=== PATIENT | female | born 1995 | race Two or more races ===

== ENCOUNTER 2017-03-26 04:30 | Inpatient (IN) | payer OTHER ==
[2017-03-26] MEDS ORDERED: BUTORPHANOL TARTRATE 1 MG/ML VIAL IVPUSH ONE (05:30)
[2017-03-26] MEDS ORDERED: DEXTROSE 5%-LACTATED RINGERS 1,000 ML IV SCH ×2 (05:30→18:45)
[2017-03-26] MEDS ORDERED: AMPICILLIN 2 GM/100 ML BAG (PRE-DOCKED) IVPB ONE (05:30)
[2017-03-26 05:48] LABS: BASOPHIL 0.4 % (0-2.0); EOSINOPHIL 2.5 % (0-4.5); MCH 24.9 pg (25.7-33.7); MCHC 33.3 g/dl (32.0-36.0); MEAN CELL VOLUME 74.7 fl (80-96); MEAN PLT VOLUME 8.6 fl (7.5-11.1); NEUTROPHILS 71.7 % (42.8-82.8); PLATELET COUNT 241 K/MM3 (134-434); RDW 18.3 % (11.6-15.6); WHITE BLOOD COUNT 10.3 K/mm3 (4.0-10.0)
[2017-03-26 06:00] LABS: INR 1.05 (0.82-1.09); PROTHROMBIN TIME (PATIENT) 11.6 SEC (9.98-11.88)
[2017-03-26 06:01] VITALS: BMI 42.0
[2017-03-26 06:03] LABS: ACTIVATED PTT 32.2 SECONDS (26.9-34.4)
[2017-03-26 06:09] LABS: URINE MARIJUANA THC NEGATIVE ng/ml (CUTOFF=50)
[2017-03-26 06:16] LABS: CALCIUM 9.8 mg/dL (8.5-10.1); COCKROFT - GAULT 244.2645; CREATININE 0.6 mg/dL (0.55-1.02)
[2017-03-26] MEDS: AMPICILLIN (PRE-DOCKED) 1 GM/100 ML BAG IVPB SCH ×4 (10:22→21:38)
[2017-03-26] MEDS ORDERED: FENTANYL/BUPIVACAINE/NS/PF - PCEA - 50 ML DISP.SYRIN EP SCH (12:30)
--- NOTE | 2017-03-26 12:50 | PN ---
Progress Note (short form) - Note Progress Note: cx 3 cm 80 vx -2 mr, fhr cat 1, contraction q 3 min
--- NOTE | 2017-03-26 12:58 | HP ---
Past Medical History - Primary Care Physician PCP:: Marck Kahn - Admission Chief Complaint: 38.4 weeks, rom, labor History of Present Illness: 21 yo f edc by sono 04/05/17 38.4 weeks, c/o rom since 9 pm 03/25/17 , contraction since midnight light mec amniotic fluid, cx 2 cm 80 vx -2 mr, light mec, fhr cat1 History Source: Patient Limitations to Obtaining History: No Limitations - Past Medical History ...: 1 ...Para: 0 ...Term: 0 ...: 0 ...Spon : 0 ...Induced : 0 ...Multiple Gestation: 0 ...LMP: 06/29/16 ... Weeks Gestation by Dates: 38.4 ...EDC by Dates: 04/05/17 ...EDC by Sono: 04/05/17 Endocrine: Yes: Hypothyroidism (on no meds) - Past Surgical History Hx Myomectomy: No Hx Transabdominal Cerclage: No - Smoking History Smoking history: Never smoked Have you smoked in the past 12 months: No Aproximately how many cigarettes per day: 0 - Alcohol/Substance Use Hx Alcohol Use: No History of Substance Use: reports: None - Social History History of Recent Travel: No Home Medications - Allergies Allergies/Adverse Reactions: Allergies Allergy/AdvReac Type Severity Reaction Status Date / Time No Known Drug Allergies Allergy Unknown Verified 03/26/17 07:32 peanuts Allergy Mild anapylaxis Uncoded 03/26/17 07:32 - Home Medications Home Medications: Ambulatory Orders Vit/Iron Fumarate/FA [ Tablet] 1 each PO DAILY 02/12/17 Review of Systems - Review of Systems Constitutional: reports: No Symptoms Eyes: reports: No Symptoms HENT: reports: No Symptoms Neck: reports: No Symptoms Cardiovascular: reports: No Symptoms Respiratory: reports: No Symptoms Gastrointestinal: reports: No Symptoms Genitourinary: reports: No Symptoms Breasts: reports: No Symptoms Reported Musculoskeletal: reports: No Symptoms Integumentary: reports: No Symptoms Neurological: reports: No Symptoms Endocrine: reports: No Symptoms Hematology/Lymphatic: reports: No Symptoms Psychiatric: reports: No Symptoms Physical Exam - Maternity Vital Signs: Vital Signs Temperature 97.9 F 03/26/17 11:00 Pulse Rate 82 03/26/17 11:00 Respiratory Rate 17 03/26/17 11:00 Blood Pressure 124/77 03/26/17 11:00 O2 Sat by Pulse Oximetry (%) Constitutional: Yes: Well Nourished, No Distress, Calm Eyes: Yes: WNL, Conjunctiva Clear, EOM Intact HENT: Yes: WNL, Atraumatic, Normocephalic Neck: Yes: WNL, Supple, Trachea Midline Cardiovascular: Yes: WNL, Regular Rate and Rhythm Breast(s): Yes: WNL - Abdominal Exam/OB Fundal Height: 40 Number of Fetuses: Single Presentation: Vertex Contractions: Yes Regularity: Regular Intensity: Mod/Strong Monitor Mode: External Heart Rate Location: [facility] Category: I Accelerations: Uniform Decelerations: None - Vaginal Exam/OB Vaginal Bleediing: No Speculum Exam: No Dilatation (cm): 2 cm Effacement (%): 75 Amniotic Membrane Status: Ruptured Nitrazine Test: Positive Amniotic Fluid: Yes: Meconium Stained Presentation: Vertex/Position Station: -2 - Physical Exam Musculoskeletal: Yes: WNL Extremities: Yes: WNL Edema: Yes Edema: LLE: Trace, RLE: Trace Deep Tendon Reflex Grade: Normal +2 ...Motor Strength: WNL Psychiatric: Yes: WNL - Labs Lab Results: CBC, BMP 03/26/17 05:30 03/26/17 05:30 Problem List - Problems (1) with 38 completed weeks gestation Code(s): Z3A.38 - 38 WEEKS GESTATION OF (2) membrane rupture Code(s): TJM5097 - (3) Labor established Code(s): SXA4693 - Assessment/Plan admit, heart monitoring, pain management
[2017-03-26] MEDS ORDERED: CITRIC ACID/SODIUM CITRATE 30 ML UNIT-DOSE CUP PO ONE (17:55)
[2017-03-26] MEDS ORDERED: ELECTROLYTE-148 SOLN 500 ML IV ONE ×2 (17:55→18:25)
[2017-03-26] MEDS ORDERED: BENZOCAINE 20% 57 GM BOTTLE TP PRN (18:38)
[2017-03-26] MEDS ORDERED: WITCH HAZEL 50% (TUCKS) 40 PAD/JAR PAD TP PRN (18:38)
[2017-03-26] MEDS ORDERED: BENZOCAINE 28 GM HEMORRHOIDAL OINTMENT PR PRN (18:38)
[2017-03-26] MEDS ORDERED: oxyCODONE HCL 5 MG TABLET PO PRN ×2 (18:38)
[2017-03-26] MEDS ORDERED: METHYLERGONOVINE MALEATE 0.2 MG/1 ML AMP IM PRN (18:38)
[2017-03-26] MEDS ORDERED: diphenhydrAMINE HCL 25 MG CAPSULE (FP) PO PRN (18:38)
[2017-03-26] MEDS ORDERED: IBUPROFEN 800 MG/8 ML IJ IVPB PRN (18:38)
[2017-03-26] MEDS ORDERED: OXYTOCIN 20 UNITS in 0.9% NS 1,000 ML IV SCH (18:45)
[2017-03-26] MEDS ORDERED: IBUPROFEN 600 MG TABLET (FP) PO PRN (19:11)
[2017-03-26] MEDS ORDERED: ONDANSETRON 4 MG/2 ML VIAL IVPB PRN (19:11)
[2017-03-26 19:36] LABS: ARTERIAL BLD GAS O2 SATURATION 13.7 % (90-98.9); ARTERIAL BLOOD GAS BASE EXCESS -0.9 meq/l (-2-2); ARTERIAL BLOOD GAS HCO3 27.4 meq/L (22-26); ARTERIAL BLOOD GAS PO2 13.7 mmHg (80-100); ARTERIAL BLOOD GAS pH 7.26 (7.35-7.45)
[2017-03-26 19:43] LABS: VENOUS PH 7.4 (7.32-7.42)
[2017-03-26 19:44] LABS: VENOUS BLOOD GAS HCO3 24.9 meq/L (19-25)
[2017-03-26 19:45] LABS: LPM/O2% 21%; PT. ON O2? NO; TYPE OF O2 ROOM AIR
[2017-03-27] MEDS: CEFAZOLIN (PRE-DOCKED) 50 ML IVPB SCH ×2 (01:00→09:35)
[2017-03-27 08:19] LABS: BASOPHIL 0.6 % (0-2.0); EOSINOPHIL 1.1 % (0-4.5); MCH 25.5 pg (25.7-33.7); MCHC 33.5 g/dl (32.0-36.0); MEAN CELL VOLUME 76.1 fl (80-96); MEAN PLT VOLUME 8.5 fl (7.5-11.1); PLATELET COUNT 194 K/MM3 (134-434); RDW 18.4 % (11.6-15.6); WHITE BLOOD COUNT 12.5 K/mm3 (4.0-10.0)
--- NOTE | 2017-03-27 09:19 | PN ---
Progress Note (short form) - Note Progress Note: pod 1 doing well, has mild low abdominal cramps CBC, BMP 03/27/17 07:00 03/26/17 05:30 abdomen soft, no distension, no cva incision dry no excess vaginal bleeding no calf tenderness plan ambulate, advance diet Problem List - Problems (1) with 38 completed weeks gestation Code(s): Z3A.38 - 38 WEEKS GESTATION OF (2) membrane rupture Code(s): IQV5659 - (3) Labor established Code(s): KUP7841 -
[2017-03-27] MEDS: PRENATAL VITAMINS W/ FOLIC ACID TABLET (FP) PO SCH (09:37)
--- NOTE | 2017-03-27 11:10 | PN ---
Progress Note (short form) - Note Progress Note: Anesthesia post op note. S/P in spinal, POD#1. Pat seen and examined, VSS. No apparentpost anesthesia complications. Signed off.
[2017-03-27] MEDS: ACETAMINOPHEN 325 MG TABLET (FP) PO PRN ×2 (13:54→22:31)
[2017-03-27] MEDS: IBUPROFEN 600 MG TABLET (FP) PO PRN ×2 (13:54→22:31)
[2017-03-27] MEDS: SIMETHICONE 80 MG TAB.CHEW (FP) PO PRN ×2 (13:54→22:31)
[2017-03-27] MEDS ORDERED: BISACODYL 10 MG SUPP.RECT RC PRN (18:38)
--- NOTE | 2017-03-27 23:42 | OP ---
DATE OF OPERATION: 03/26/2017 PREOPERATIVE DIAGNOSIS: term. Ruptured membrane. Meconium amniotic fluid. Nonreassuring heart rate. POSTOPERATIVE DIAGNOSIS: term. Ruptured membrane. Meconium amniotic fluid. Nonreassuring heart rate. PROCEDURE: Primary low segment transverse section. SURGEON: Brenda Logan M.D. STATE ATTORNEY: Nydia Yarbrough M.D. ANESTHESIA: Epidural. ANESTHESIOLOGIST: Sabino Scott M.D. ESTIMATED BLOOD LOSS: 700 mL. OPERATION: Patient was taken to operating room with adequate epidural anesthesia. Abdomen and perineum were prepped and draped. Pfannenstiel abdominal skin incision was made. Abdominal wall was cut layer by layer until the peritoneum was exposed and incised. Upon entering the abdominal cavity, the lower uterine segment was identified, and uterovesical fold of the peritoneum was established. The bladder was pushed down. Then with the lower blade of the [place] retractor in the pelvis, a low transverse uterine incision was made. The incision extended laterally. Amniotic sac was entered. Meconium amniotic fluid. Head delivered. Nasopharynx was suctioned. A live baby was delivered. Apgars 9 and 9. Placenta was delivered manually. Uterine cavity was cleared of all remaining tissue. Uterine incision was closed in 2 layers, the 1st layer with 0 Biosyn continuous suture, the 2nd layer with 0 Biosyn imbricating the 1st layer. Bladder flap was closed with 0 Biosyn continuous suture. Both tubes and ovaries were checked and were normal. No active bleeding was seen. All the lap, sponge, and instrument counts were correct. Peritoneum was closed with 0 Biosyn continuous suture. Muscles were brought together interrupted suture with 0 Biosyn. Fascia was closed with 0 Biosyn continuous sutures. Subcutaneous fat interrupted sutures 0 Biosyn, and the skin was closed with sae. The patient tolerated the procedure well and left the OR in good condition. BRENDA LOGAN M.D. [id number]
--- NOTE | 2017-03-28 08:15 | PN ---
Progress Note (short form) - Note Progress Note: pod 2 doing well sitting in chair, no c/o CBC, BMP 03/27/17 07:00 03/26/17 05:30 Last Vital Signs Temp Pulse Resp BP Pulse Ox 98.6 F 104 H 18 131/65 100 03/27/17 22:00 03/27/17 22:00 03/27/17 22:00 03/27/17 22:00 03/26/17 20:30 abdomen soft, no distension, no cva, incision dry, clean no calf tenderness plan ambulate, cbc in am Problem List - Problems (1) with 38 completed weeks gestation Code(s): Z3A.38 - 38 WEEKS GESTATION OF (2) membrane rupture Code(s): TQX7303 - (3) Labor established Code(s): [id number] -
[2017-03-28] MEDS: SIMETHICONE 80 MG TAB.CHEW (FP) PO PRN ×2 (08:20→23:24)
[2017-03-28] MEDS: ACETAMINOPHEN 325 MG TABLET (FP) PO PRN ×2 (08:20→23:30)
[2017-03-28] MEDS: IBUPROFEN 600 MG TABLET (FP) PO PRN ×2 (08:21→23:24)
[2017-03-28] MEDS: PRENATAL VITAMINS W/ FOLIC ACID TABLET (FP) PO SCH (09:17)
--- NOTE | 2017-03-28 19:32 | CON.PSY ---
Psychiatry Consult Chief Complaint: Asked to see this patient a 21 year old female with a hx of anxiety/depressionDay 2 C Section History of Present Problem: Patient states that she has a hx of depression/anxiety for which she took zoloft about 2 years ago. Her last clinic was at [address] She reports that she has been doing 'good' since two years ago when she stopped medications and her case was closed. No hx of psych. hospitalization, or suicidal/attempts. - Current Medications Current Medications: Active Medications Acetaminophen (Tylenol -) 650 mg PO Q4H PRN PRN Reason: FEVER OR PAIN Last Admin: 03/28/17 08:20 Dose: 650 mg Benzocaine (Americaine Ointment -) 1 applic AR PRN PRN PRN Reason: PAIN Benzocaine (Americaine 20% [place] -) 1 spray TP PRN PRN PRN Reason: PAIN Bisacodyl (Dulcolax Suppository -) 10 mg RC PRN PRN PRN Reason: CONSTIPATION Diphenhydramine HCl (Benadryl -) 25 mg PO Q8H PRN PRN Reason: FOR ITCHING Diphenhydramine HCl (Benadryl Injection -) 25 mg IVPUSH Q4H PRN PRN Reason: Pruritis Last Admin: 03/27/17 04:45 Dose: 25 mg Dextrose/Lactated Ringer's (D5-Lr -) 1,000 mls @ 125 mls/hr IV ASDIR LÁZARO Last Admin: 03/26/17 05:15 Dose: 125 mls/hr Dextrose/Lactated Ringer's (D5-Lr -) 1,000 mls @ 125 mls/hr IV ASDIR LÁZARO Ibuprofen (Motrin -) 600 mg PO Q4H PRN PRN Reason: PAIN Last Admin: 03/28/17 08:21 Dose: 600 mg Ibuprofen (Motrin -) 600 mg PO Q4H PRN PRN Reason: PAIN Methylergonovine Maleate (Methergine Injection -) 0.2 mg IM Q4H PRN PRN Reason: EXCESSIVE BLEEDING Oxycodone HCl (Roxicodone -) 5 mg PO Q4H PRN PRN Reason: PAIN LEVEL 1-5 Oxycodone HCl (Roxicodone -) 10 mg PO Q4H PRN PRN Reason: PAIN LEVEL 6-10 Multivit/Folic Acid/Iron ( Vitamins (Sjr) -) 1 tab PO DAILY LÁZARO Last Admin: 03/28/17 09:17 Dose: 1 tab Senna/Docusate Sodium (Pericolace -) 2 tablet PO HS PRN PRN Reason: CONSTIPATION Simethicone (Mylicon -) 80 mg PO Q4H PRN PRN Reason: GAS Last Admin: 03/28/17 08:20 Dose: 80 mg Witch Connie/Glycerin (Tucks Pads -) 1 pad TP PRN PRN PRN Reason: PAIN - Allergies Allergies: Allergies Allergy/AdvReac Type Severity Reaction Status Date / Time No Known Drug Allergies Allergy Unknown Verified 03/26/17 07:32 peanuts Allergy Mild anapylaxis Uncoded 03/26/17 07:32 - Current Living Status Usual Living Arrangement: Alone - Affect Affect: Full Range Appropriateness: Appropriate to Content - Mood Mood: Euthymic - Speech/Language Expressive: Coherent Receptive: Age Appropriate Comprehension of Spoken Words - Psychomotor Activity Psychomotor Activity: Normal - Thought Process Thought Process: Intact - Thought Content Hallucinations: Absent Delusions: Absent - Self Perception Self Perception: No Impairment - Cognition Attention: Alert Orientation: Time, Person, Place Memory, Immediate Recall: Intact Memory, Short Term: 3/3 Memory, Remote with Promptin/3 - Concentration Simple Calculations Intact: Yes - Abstraction Judgement: Intact - Insight Insight: Intact - Impulse Control Impulse Control: Good Control - Suicidal Ideation Suicidal Ideation: No Assessment/Plan This is a 21 year old female with a hx of depression/anxiety who has been doing well for approx. 2 years. She self dc zoloft and has had no bouts of depression /anxiety since. has a support system which includes her mother and baby's father and she lives in her own studio apartment Today, she was informed of the possibility of post depression, and the signs to look for. Boyfriend, significant other was present who listened attentively as well Sis Arshad
[2017-03-28] MEDS ORDERED: SENNOSIDES/DOCUSATE COMBO (SENNA PLUS) TABLET (UD) PO PRN (22:00)
--- NOTE | 2017-03-29 05:45 | PN ---
Post Progress Note - Subjective Subjective: 21 yo Para 1, with h/o depression, status post primary , seen and evaluated. She's doing well. She denies any suicidal ideation. Type of Delivery: Primary C/S Vital Signs: Vital Signs Temperature 98.4 F 03/28/17 21:17 Pulse Rate 90 03/28/17 21:17 Respiratory Rate 20 03/28/17 21:17 Blood Pressure 126/90 03/28/17 21:17 O2 Sat by Pulse Oximetry (%) 100 03/26/17 20:30 Breast Exam: Yes: Soft Uterus: Yes: Fundus Firm Abdomen/GI: Yes: Abdomen soft, Tolerating PO Lochia: Yes: Rubra Lochia, amount: Small Extremities: Yes: Calves non-tender Perineum: Yes: Intact Activity: Ambulating - Labs Labs: CBC WBC 12.5 K/mm3 (4.0-10.0) H 03/27/17 07:00 RBC 4.24 M/mm3 (3.60-5.2) 03/27/17 07:00 Hgb 10.8 GM/dL (10.7-15.3) 03/27/17 07:00 Hct 32.2 % (32.4-45.2) L 03/27/17 07:00 MCV 76.1 fl (80-96) L 03/27/17 07:00 MCHC 33.5 g/dl (32.0-36.0) 03/27/17 07:00 RDW 18.4 % (11.6-15.6) H 03/27/17 07:00 Plt Count 194 K/MM3 (134-434) 03/27/17 07:00 MPV 8.5 fl (7.5-11.1) 03/27/17 07:00 Neutrophils % 78.0 % (42.8-82.8) 03/27/17 07:00 Lymphocytes % 12.6 % (8-40) D 03/27/17 07:00 Monocytes % 7.7 % (3.8-10.2) 03/27/17 07:00 Eosinophils % 1.1 % (0-4.5) 03/27/17 07:00 Basophils % 0.6 % (0-2.0) 03/27/17 07:00 Problem List - Problems (1) History of primary section Code(s): Z98.891 - HISTORY OF UTERINE SCAR FROM PREVIOUS SURGERY Assessment/Plan Status post primary Personal h/o depression Continue observation F/U Psychiatry consult
[2017-03-29 08:33] LABS: BASOPHIL 0.3 % (0-2.0); EOSINOPHIL 4.3 % (0-4.5); MCH 25.8 pg (25.7-33.7); MCHC 33.9 g/dl (32.0-36.0); MEAN CELL VOLUME 76.1 fl (80-96); MEAN PLT VOLUME 8.6 fl (7.5-11.1); NEUTROPHILS 75.3 % (42.8-82.8); PLATELET COUNT 250 K/MM3 (134-434); RDW 18.2 % (11.6-15.6); WHITE BLOOD COUNT 10.1 K/mm3 (4.0-10.0)
[2017-03-29] MEDS: PRENATAL VITAMINS W/ FOLIC ACID TABLET (FP) PO SCH (10:46)
[2017-03-29] MEDS: IBUPROFEN 600 MG TABLET (FP) PO PRN ×2 (11:51→21:08)
[2017-03-29] MEDS: ACETAMINOPHEN 325 MG TABLET (FP) PO PRN ×2 (11:51→21:07)
[2017-03-29] MEDS: SIMETHICONE 80 MG TAB.CHEW (FP) PO PRN ×2 (11:52→21:08)
[2017-03-30 07:43] VITALS: BP 127/57; PULSE 88; TEMP 97.8
--- NOTE | 2017-03-30 08:42 | PN ---
Post Progress Note - Subjective Subjective: no complains h/o depression Post Day: 4 Type of Delivery: Primary C/S Vital Signs: Vital Signs Temperature 97.8 F 03/30/17 07:40 Pulse Rate 88 03/30/17 07:40 Respiratory Rate 18 03/30/17 07:40 Blood Pressure 127/57 03/30/17 07:40 O2 Sat by Pulse Oximetry (%) 100 03/26/17 20:30 Breast Exam: Yes: Soft. No: Engorged Uterus: Yes: Fundus Firm, Fundus below umbilicus, Non-tender Incision: Yes: [place] intact (to be removed). No: Redness, Oozing Abdomen/GI: Yes: Abdomen soft, Passing flatus, Tolerating PO (diet ). No: Abdominal Distention, Tender Lochia, amount: Moderate Extremities: Yes: Calves non-tender Perineum: Yes: Intact Activity: Ambulating - Labs Labs: CBC WBC 10.1 K/mm3 (4.0-10.0) H 03/29/17 07:30 RBC 4.26 M/mm3 (3.60-5.2) 03/29/17 07:30 Hgb 11.0 GM/dL (10.7-15.3) 03/29/17 07:30 Hct 32.5 % (32.4-45.2) 03/29/17 07:30 MCV 76.1 fl (80-96) L 03/29/17 07:30 MCHC 33.9 g/dl (32.0-36.0) 03/29/17 07:30 RDW 18.2 % (11.6-15.6) H 03/29/17 07:30 Plt Count 250 K/MM3 (134-434) D 03/29/17 07:30 MPV 8.6 fl (7.5-11.1) 03/29/17 07:30 Neutrophils % 75.3 % (42.8-82.8) 03/29/17 07:30 Lymphocytes % 14.0 % (8-40) 03/29/17 07:30 Monocytes % 6.1 % (3.8-10.2) 03/29/17 07:30 Eosinophils % 4.3 % (0-4.5) D 03/29/17 07:30 Basophils % 0.3 % (0-2.0) 03/29/17 07:30 Assessment/Plan s/p depression , psyche consult obtained pt will follow up with her psyche clinic s/p c/section day #4 stable discharge today
--- NOTE | 2017-03-30 09:37 | DS ---
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 Vital Signs: Vital Signs Temperature 97.8 F 03/30/17 07:40 Pulse Rate 88 03/30/17 07:40 Respiratory Rate 18 03/30/17 07:40 Blood Pressure 127/57 03/30/17 07:40 O2 Sat by Pulse Oximetry (%) 100 03/26/17 20:30 Constitutional: Yes: Well Nourished, No Distress, Calm Eyes: Yes: WNL, Conjunctiva Clear, EOM Intact HENT: Yes: WNL, Atraumatic, Normocephalic Neck: Yes: WNL, Supple, Trachea Midline Cardiovascular: Yes: WNL, Regular Rate and Rhythm Respiratory: Yes: WNL, Regular, CTA Bilaterally Gastrointestinal: Yes: WNL ...Rectal Exam: Yes: WNL Renal/: Yes: WNL External Genitalia: Yes: Normal ....Post : Yes: Uterus firm, Uterus non-tender, Slight lochia rubra Breast(s): Yes: WNL Musculoskeletal: Yes: WNL Extremities: Yes: WNL Integumentary: Yes: WNL Wound/Incision: Yes: Clean/Dry, Well Approximated, [place] Removed Neurological: Yes: WNL, Alert, Oriented ...Motor Strength: WNL Psychiatric: Yes: WNL, Alert, Oriented Labs: CBC, BMP 03/29/17 07:30 03/26/17 05:30 Delivery - Delivery Section: Primary (no complication), Low Flap Transverse Type of Anesthesia: Epidural Episiotomy/Laceration: None EBL (cc): 500 Delivery, Single - Stages of Labor Date 1st Stage Initiatied: 03/25/17 Time 1st Stage Initiated: 21:00 Date of Delivery: 03/26/17 Time of Delivery: 19:07 Time Placenta Delivered: 19:08 Placenta: Yes: Expressed - 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 Present: Yes Name: Lashonda Vela Infant Gender: Female Weight: 7 lb 9 oz Position: OP Total Hours ROM (Hrs/Mins): 22h8m - 1 Minute Total Score: 9 5 Minutes Total Score: 9 - [place] Feeding Plan Initial Plan: Elected not to breastfeed exclusively throughout hospitalization Discharge Summary Reason For Visit: LABOR ADMIT Current Active Problems membrane rupture (Acute) History of primary section (Acute) Labor established (Acute) with 38 completed weeks gestation (Acute) Procedures: Principal: primary LST c/s Condition: Good - Instructions Diet, Activity, Other Instructions: regular diet, follow up [facility] care 1 week Referrals: [facility] ([facility]) [Outside] Marck Kahn MD [Staff Physician] - Disposition: HOME - Home Medications Comprehensive Discharge Medication List: Ambulatory Orders Vit/Iron Fumarate/FA [ Tablet] 1 each PO DAILY 02/12/17 Ibuprofen [Motrin -] 600 mg PO QID #28 tablet 03/27/17
[2017-03-30] MEDS: PRENATAL VITAMINS W/ FOLIC ACID TABLET (FP) PO SCH (09:40)
[2017-03-30] MEDS: SIMETHICONE 80 MG TAB.CHEW (FP) PO PRN (09:40)
[2017-03-30] MEDS: IBUPROFEN 600 MG TABLET (FP) PO PRN (09:40)
[2017-03-30] MEDS: ACETAMINOPHEN 325 MG TABLET (FP) PO PRN (09:41)
--- NOTE | 2017-04-01 14:46 | PATH ---
Surgical Pathology Report Patient Name: JUANITA ARCOS Med. Rec. #: [id number] /Age/Gender: 1995 (Age: 21) / F Account: [id number] Location: [facility] OBS/PRODUCE RUNNER Taken: 03/26/2017 Received: 03/28/2017 Reported: 04/01/2017 Physicians: Marck Kahn M.D. Specimen(s) Received PLACENTA Clinical History , history of hyperthyroidism, histiocytosis status post chemo ages 1-6; non-reassuring heart rate, meconium Primary c/section Final Diagnosis PLACENTA, DELIVERY: FOCALLY DISRUPTED THIRD TRIMESTER PLACENTA WITH MILD INCREASE IN PERIVILLOUS, AND PRECHORIONIC FIBRIN DEPOSITION, THREE VESSEL UMBILICAL CORD, AND PLACENTAL MEMBRANES WITH MECONIUM HISTOCYTOSIS. Electronically Signed Bob Xavier M.D. Gross Description The specimen is received fresh, labeled "placenta" and is a 432 gram, 17.0 x 16.5 x 2.5 cm placenta with attached membranes and umbilical cord. The attached membranes are sims-green, meconium stained, translucent with focal opacities and insert marginally. The umbilical cord measures 25 cm in length and averages 1.4 cm in diameter. The cord inserts centrally. No true knots or strictures are identified. Cut surface of the umbilical cord reveals 3 vessels. The surface is mesa-green, meconium stained with fibrin deposition and appropriate caliber vessels. The maternal surface is red-brown with focal defects. Sectioning reveals red-brown, spongy parenchyma. No focal lesions are identified. Music Composer sections are submitted in three cassettes as follows: 1- membrane rolls and umbilical cord; 2-3- full thickness sections of placenta. 03/31/2017 [facility]03/31/2017
== END 2017-03-30 15:15 | disposition home or self-care (01) | DRG 540 ==
LOC: JLDR 04:30 → J3W 21:15
PROVIDERS: ADMIT Obstetrics & Gynecology; ATTEND Obstetrics & Gynecology
PROC: 10D00Z1 Extraction of Products of Conception, Low, Open Approach (ICD-10-PCS; principal; 2017-03-26)
DX: O76 Abnormality in fetal heart rate and rhythm complicating labor and delivery (principal); O77.0 Labor and delivery complicated by meconium in amniotic fluid; O75.89 Other specified complications of labor and delivery; O99.283 Endocrine, nutritional and metabolic diseases complicating pregnancy, third trimester; E03.9 Hypothyroidism, unspecified; F41.8 Other specified anxiety disorders; Z37.0 Single live birth; Z3A.38 38 weeks gestation of pregnancy
CPT/HCPCS: 36415; 36600; 80048; 80307; 82803; 85025; 85610; 85730; 86593; 86850; 86900; 86901; 88307-TC

== ENCOUNTER 2017-04-07 06:51 | Emergency (ER) | payer OTHER ==
[2017-04-07 07:04] VITALS: BP 128/73; PULSE 92; TEMP 98.1; BMI 39.1
--- NOTE | 2017-04-07 07:04 | PDOC ---
Attending Attestation - Resident Resident Name: Canelo Spring - ED Attending Attestation I have performed the following: I have examined & evaluated the patient, The case was reviewed & discussed with the resident, I agree w/resident's findings & plan, Exceptions are as noted - HPI HPI: 04/07/17 07:05 The patient is a 21-year-old female, , status post on March 26, who presents to the emergency department with left foot pain after she everted her ankle this morning. She did not fall. She denies other injuries. 04/07/17 07:23 - Physicial Exam PE: 04/07/17 07:23 She is well appearing She has tenderness and over the proximal talofibular ligament She has no maleolar tenderness - Medical Decision Making 04/07/17 07:24 Will obtain Xray 04/07/17 07:56 X-ray emergency Department interpretation: No fracture or dislocation seen Clinical impression: Talofibular ligament sprain I discussed the physical exam findings, ancillary test results and final diagnoses with the patient. I answered all of the patient's questions. The patient was satisfied with the care received and felt comfortable with the discharge plan and treatment plan. The patient will call their primary care physician within 24 hours to arrange follow-up and will return to the Emergency Department with any new, persistent or worsening symptoms. Discharge Disposition - Diagnosis Sprain of ankle - Discharge Dispostion Disposition: HOME Condition at time of disposition: Improved Last Admission D/C Date: 03/30/17 - Referrals Referrals: Thalia Quinn MD [Primary Care Provider] - Ho Swain MD [Staff Physician] - - Patient Instructions Printed Discharge Instructions: DI for Ankle Sprain Additional Instructions: Return to the emergency department immediately with ANY new, persistent or worsening symptoms. You MUST call and follow up with your doctor tomorrow. Please make sure your doctor reviews the results of your emergency department evaluation.
--- NOTE | 2017-04-07 08:19 | PDOC ---
History of Present Illness - General Chief Complaint: Pain, Acute Stated Complaint: LT FOOT PAIN Time Seen by Provider: 04/07/17 07:04 History Source: Patient Exam Limitations: No Limitations - History of Present Illness Initial Comments: 21 y/o (s/p delivery 03/26/17) presents to ER after everting L ankle and hearing a crack. She was in 10/10 pain at the time and is at 7/10 pain currently and she has swelling and pain at L lateral hindfoot under ankle. She has some numbness on toes 3-5. Pt denies N/V/F/C, CP, SOB. She is unable to bare weight on L foot at this time. Pt is not . 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 FERRELL) Diabetes: No HTN: No Thyroid Disease: Yes (HYPERTYROIDISM- NO MEDS) - Surgical History Neurologic Surgery: Yes (plate in left occiput age 6) - Psycho/Social/Smoking Cessation Hx Anxiety: No Suicidal Ideation: No Smoking Status: No Smoking History: Never smoked Have you smoked in the past 12 months: No Number of Cigarettes Smoked Daily: 0 Information on smoking cessation initiated: No Hx Alcohol Use: No Drug/Substance Use Hx: No Substance Use Type: None Hx Substance Use Treatment: No Review of Systems - Review of Systems Comments:: CONSTITUTIONAL: Absent: fever, no chills CARDIOVASCULAR: Absent: chest pain RESPIRATORY: Absent: cough, no SOB GI: Absent: abdominal pain, no nausea, no vomiting GENITOURINARY: Absent: dysuria, no frequency, no hematuria MUSCULOSKELETAL: +L foot pain and L foot swelling NEURO: +Numbness at L toes 3-5 and dorsal aspect of L foot. *Physical Exam - Vital Signs Last Vital Signs Temp Pulse Resp BP Pulse Ox 98.1 F 92 H 19 128/73 98 04/07/17 07:02 04/07/17 07:02 04/07/17 07:02 04/07/17 07:02 04/07/17 07:02 - Physical Exam Comments: GENERAL: Well-appearing, well-nourished. No apparent distress. HEENT: EOM intact. CARDIOVASCULAR: Normal S1, S2. Regular rate and rhythm. PULMONARY: Clear to auscultation bilaterally. ABDOMEN: Soft, non-distended, non-tender. EXTREMITIES: L ankle swelling at L lateral hindfoot under calcaneous. Pain with eversion. Axial loading - pt has pain with axial loading across length of leg. SKIN: Warm, dry. No rash NEUROLOGICAL: Decreased sensation at dorsal aspect of L foot and toes 3-5. ED Treatment Course - RADIOLOGY Radiology Studies Ordered: Category Date Time Status ANKLE & FOOT-LEFT* [RAD] Stat Radiology 04/07/17 07:25 Ordered Medical Decision Making - Medical Decision Making 04/07/17 07:36 Will get XR of L foot and ankle. 04/07/17 08:27 L foot and ankle XR w/o any signs of fracture Pt to take motrin for pain. To see Dr. Swain for ortho f/u. Pt to go home with crutches. Pt to return to ER if symptoms worsen. Pt likely has Talofibular ligament sprai *DC/Admit/Observation/Transfer Diagnosis at time of Disposition: Ankle sprain - Discharge Dispostion Condition at time of disposition: Fair - Referrals Referrals: Ho Swain MD [Staff Physician] - Thalia Quinn MD [Staff Physician] - - Patient Instructions Printed Discharge Instructions: DI for Ankle Sprain Additional Instructions: Return to the emergency department immediately with ANY new, persistent or worsening symptoms. You MUST call and follow up with your doctor tomorrow. Please make sure your doctor reviews the results of your emergency department evaluation.
== END 2017-04-07 08:04 | disposition home or self-care (01) ==
LOC: SUPCPDRO 06:51 → JER 06:51
DX: S93.492A Sprain of other ligament of left ankle, initial encounter (principal); X50.1XXA Overexertion from prolonged static or awkward postures, initial encounter; Y93.89 Activity, other specified; Y92.89 Other specified places as the place of occurrence of the external cause
CPT/HCPCS: 73610-TC-LT; 73630-TC-LT; 99282-25

== ENCOUNTER 2018-08-04 08:25 | Inpatient (IN) | payer OTHER ==
[2018-08-04] MEDS ORDERED: ELECTROLYTE-148 SOLN 1,000 ML IV SCH (08:30)
[2018-08-04] MEDS ORDERED: CITRIC ACID/SODIUM CITRATE 30 ML UNIT-DOSE CUP PO ONE (09:00)
[2018-08-04 09:08] VITALS: BMI 40.2
[2018-08-04] MEDS ORDERED: morphine SULFATE/Preservative Free 0.5 MG/ML (1cc Syringe) ONE (09:19)
[2018-08-04] MEDS ORDERED: ceFAZolin SODIUM 1 GM VIAL ONE (09:19)
[2018-08-04] MEDS ORDERED: PHENYLEPHRINE HCL 10 MG/1 ML SINGLE DOSE VIAL ONE (09:31)
[2018-08-04] MEDS ORDERED: OXYTOCIN 20 UNITS in 0.9% NS 20 UNIT/1,000 ML INFUS.BAG IV ONE (09:35)
[2018-08-04] MEDS ORDERED: OXYTOCIN 20 UNITS in 0.9% NS 40 UNIT/2,000 ML INFUS.BAG IV ONE (09:37)
[2018-08-04] MEDS: ELECTROLYTE-148 SOLN 1,000 ML IV SCH (09:45)
--- NOTE | 2018-08-04 09:52 | HP ---
Past Medical History - Admission Chief Complaint: Here for scheduled C/S History Source: Patient - Past Medical History ...: 2 ...Para: 1 ...Term: 1 ...: 0 ...Spon : 0 ...Induced : 0 ...Multiple Gestation: 0 ...LMP: 10/23/17 ... Weeks Gestation by Dates: 40.5 ...EDC by Dates: 07/30/18 ...EDC by Sono: 07/29/18 Endocrine: Yes: Hypothyroidism (on no meds) - Past Surgical History Hx Myomectomy: No Hx Transabdominal Cerclage: No Additional Surgical History: Prior C/S x 1 - Smoking History Smoking history: Never smoked Have you smoked in the past 12 months: No Aproximately how many cigarettes per day: 0 - Alcohol/Substance Use Hx Alcohol Use: No History of Substance Use: reports: None - Social History History of Recent Travel: No Home Medications - Allergies Allergies/Adverse Reactions: Allergies Allergy/AdvReac Type Severity Reaction Status Date / Time No Known Drug Allergies Allergy Unknown Verified 08/04/18 08:47 peanuts Allergy Severe anapylaxis Uncoded 08/04/18 08:47 - Home Medications Home Medications: Ambulatory Orders Vit/Iron Fum/Folic AC [ Tablet] 1 each PO DAILY 02/12/17 Ferrous Sulfate [Iron] 325 mg PO DAILY 07/18/18 Physical Exam - Maternity Vital Signs: Vital Signs Temperature 98.2 F 08/04/18 08:52 Pulse Rate 102 H 08/04/18 08:52 Respiratory Rate 20 08/04/18 08:52 Blood Pressure 128/63 08/04/18 08:52 O2 Sat by Pulse Oximetry (%) Constitutional: Yes: Well Nourished, No Distress, Calm Eyes: Yes: WNL, Conjunctiva Clear, EOM Intact HENT: Yes: WNL, Atraumatic, Normocephalic Neck: Yes: WNL, Supple, Trachea Midline Cardiovascular: Yes: WNL, Regular Rate and Rhythm Breast(s): Yes: WNL - Abdominal Exam/OB Number of Fetuses: Single Presentation: Vertex Contractions: No Monitor Mode: External Category: I Decelerations: None - Vaginal Exam/OB Vaginal Bleediing: No Speculum Exam: No Assessment/Plan 22yo @ 39+wks here for scheduled C/S. Declined TOLAC Cat 1 tracing Reviewed risk of bleeding, infection, injury to bladder/bowel/nerves/arteries/ veins. All questions answered; consent signed. Adrianna Smith MD
[2018-08-04] MEDS ORDERED: ePHEDrine SULFATE 50 MG/1 ML AMPULE ONE (10:01)
[2018-08-04] MEDS ORDERED: IBUPROFEN 600 MG TABLET (FP) PO PRN (10:36)
[2018-08-04] MEDS ORDERED: morphine SULFATE/Preservative Free 0.5 MG/ML (1cc Syringe) IT ONE (10:36)
[2018-08-04] MEDS ORDERED: ONDANSETRON 4 MG/2 ML VIAL IVPUSH PRN (10:36)
--- NOTE | 2018-08-04 10:54 | OP ---
Operative Note - Note: Operative Date: 08/04/18 Pre-Operative Diagnosis: 39wk , Prior Delivery Operation: Repeat Low Transverse Delivery Findings: VFI, LOT. No nuchal. Meconium present. Apgars 6/9. 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
[2018-08-04] MEDS ORDERED: OXYTOCIN 20 UNITS in 0.9% NS 1000 ML INFUS.BAG IV ONE (12:02)
[2018-08-04] MEDS: IBUPROFEN 800 MG/8 ML IJ IVPB PRN (16:39)
[2018-08-05] MEDS: IBUPROFEN 800 MG/8 ML IJ IVPB PRN (02:17)
[2018-08-05 07:13] LABS: BASO % 0.2 % (0-2.0); EOS % 3.3 % (0-4.5); HEMOGLOBIN 10.5 GM/dL (10.7-15.3); LYMPH % 14.3 % (8-40); MCH 25.5 pg (25.7-33.7); MCHC 33.9 g/dl (32.0-36.0); MEAN CELL VOLUME 75.1 fl (80-96); MEAN PLT VOLUME 8.5 fl (7.5-11.1); MONO % 8.4 % (3.8-10.2); NEUT % 73.8 % (42.8-82.8); PLATELET COUNT 202 K/MM3 (134-434); RBC 4.13 M/mm3 (3.60-5.2); RDW 17.6 % (11.6-15.6); WHITE BLOOD COUNT 9.1 K/mm3 (4.0-10.0)
--- NOTE | 2018-08-05 09:39 | PN ---
Progress Note (short form) - Note Progress Note: Post op day#1.S/P C Section under spinal anesthesia with duramorph uneventful.Patient stable and has little pain for which she is on medication.No any anesthesia related problem.Patient DC from the anesthesia care.
[2018-08-05] MEDS ORDERED: DIPHTH,PERTUSS(ACELL),TET 0.5 ML DISP.SYRIN IM ONE (10:00)
[2018-08-05] MEDS ORDERED: BISACODYL 10 MG SUPP.RECT RC PRN (10:37)
[2018-08-05] MEDS: oxyCODONE HCL 5 MG TABLET PO PRN ×3 (10:45→20:38)
[2018-08-05] MEDS: ACETAMINOPHEN 325 MG TABLET (FP) PO PRN ×3 (10:46→20:39)
--- NOTE | 2018-08-05 12:02 | PN ---
Post Progress Note Type of Delivery: Repeat C/S Vital Signs: Vital Signs Temperature 98.6 F 08/05/18 07:56 Pulse Rate 86 08/05/18 07:56 Respiratory Rate 20 08/05/18 10:00 Blood Pressure 108/58 L 08/05/18 07:56 O2 Sat by Pulse Oximetry (%) 98 08/04/18 12:35 Uterus: Yes: Fundus Firm, Fundus below umbilicus Abdomen/GI: Yes: Abdomen soft Lochia: Yes: Rubra Lochia, amount: Moderate Extremities: Yes: Calves non-tender Activity: Ambulating - Labs Labs: CBC WBC 9.1 K/mm3 (4.0-10.0) 08/05/18 06:30 RBC 4.13 M/mm3 (3.60-5.2) 08/05/18 06:30 Hgb 10.5 GM/dL (10.7-15.3) L 08/05/18 06:30 Hct 31.0 % (32.4-45.2) L D 08/05/18 06:30 MCV 75.1 fl (80-96) L 08/05/18 06:30 MCH 25.5 pg (25.7-33.7) L 08/05/18 06:30 MCHC 33.9 g/dl (32.0-36.0) 08/05/18 06:30 RDW 17.6 % (11.6-15.6) H 08/05/18 06:30 Plt Count 202 K/MM3 (134-434) 08/05/18 06:30 MPV 8.5 fl (7.5-11.1) 08/05/18 06:30 Absolute Neuts (auto) 6.7 K/mm3 (1.5-8.0) 08/05/18 06:30 Neutrophils % 73.8 % (42.8-82.8) 08/05/18 06:30 Lymphocytes % 14.3 % (8-40) 08/05/18 06:30 Monocytes % 8.4 % (3.8-10.2) 08/05/18 06:30 Eosinophils % 3.3 % (0-4.5) 08/05/18 06:30 Basophils % 0.2 % (0-2.0) 09/29/18 06:30 Nucleated RBC % 0 % (0-0) 08/05/18 06:30 Problem List - Problems (1) S/P repeat low transverse Code(s): Z98.891 - HISTORY OF UTERINE SCAR FROM PREVIOUS SURGERY Assessment/Plan 22yo s/p RLTCS, POD#2 -Rh pos/RI/ girl -Routine PP care -D/C vera, OOB, ambulate -PO pain control -Labs reviewed -Anticipate d/c to home POD#3 Adrianna Smith MD
[2018-08-05] MEDS: SIMETHICONE 80 MG TAB.CHEW (FP) PO PRN ×2 (16:17→20:38)
[2018-08-05] MEDS: ELECTROLYTE-148 SOLN 1,000 ML IV SCH (19:41)
[2018-08-05] MEDS: IBUPROFEN 600 MG TABLET (FP) PO PRN (20:39)
[2018-08-06] MEDS: IBUPROFEN 600 MG TABLET (FP) PO PRN ×4 (00:38→18:19)
[2018-08-06] MEDS: SIMETHICONE 80 MG TAB.CHEW (FP) PO PRN ×4 (00:38→18:19)
[2018-08-06] MEDS: ACETAMINOPHEN 325 MG TABLET (FP) PO PRN ×4 (00:39→18:19)
--- NOTE | 2018-08-06 10:52 | PN ---
Post Progress Note Type of Delivery: Vital Signs: Vital Signs Temperature 98.2 F 08/06/18 08:53 Pulse Rate 84 08/06/18 08:53 Respiratory Rate 20 08/06/18 08:53 Blood Pressure 124/75 08/06/18 08:53 O2 Sat by Pulse Oximetry (%) 98 08/04/18 12:35 Uterus: Yes: Fundus Firm Incision: Yes: Sutures intact Abdomen/GI: Yes: Abdomen soft Lochia: Yes: Rubra Lochia, amount: Small Extremities: Yes: Calves non-tender Activity: Ambulating - Labs Labs: CBC WBC 9.1 K/mm3 (4.0-10.0) 08/05/18 06:30 RBC 4.13 M/mm3 (3.60-5.2) 08/05/18 06:30 Hgb 10.5 GM/dL (10.7-15.3) L 08/05/18 06:30 Hct 31.0 % (32.4-45.2) L D 08/05/18 06:30 MCV 75.1 fl (80-96) L 08/05/18 06:30 MCH 25.5 pg (25.7-33.7) L 08/05/18 06:30 MCHC 33.9 g/dl (32.0-36.0) 08/05/18 06:30 RDW 17.6 % (11.6-15.6) H 08/05/18 06:30 Plt Count 202 K/MM3 (134-434) 08/05/18 06:30 MPV 8.5 fl (7.5-11.1) 08/05/18 06:30 Absolute Neuts (auto) 6.7 K/mm3 (1.5-8.0) 08/05/18 06:30 Neutrophils % 73.8 % (42.8-82.8) 08/05/18 06:30 Lymphocytes % 14.3 % (8-40) 08/05/18 06:30 Monocytes % 8.4 % (3.8-10.2) 08/05/18 06:30 Eosinophils % 3.3 % (0-4.5) 08/05/18 06:30 Basophils % 0.2 % (0-2.0) 08/05/18 06:30 Nucleated RBC % 0 % (0-0) 08/05/18 06:30 Problem List - Problems (1) S/P repeat low transverse Code(s): Z98.891 - HISTORY OF UTERINE SCAR FROM PREVIOUS SURGERY Assessment/Plan 22yo s/p RLTCS, POD#2 Routine PP care OOB, ambulate Anticipate D/C to home tomorrow Warren Smith MD
[2018-08-07] MEDS: IBUPROFEN 600 MG TABLET (FP) PO PRN ×3 (03:18→22:18)
[2018-08-07] MEDS: SIMETHICONE 80 MG TAB.CHEW (FP) PO PRN ×2 (03:18→15:01)
[2018-08-07] MEDS: ACETAMINOPHEN 325 MG TABLET (FP) PO PRN ×3 (03:19→22:19)
[2018-08-07 06:50] LABS: BASO % 0.3 % (0-2.0); EOS % 3.1 % (0-4.5); HEMOGLOBIN 10.9 GM/dL (10.7-15.3); MCHC 33.1 g/dl (32.0-36.0); MEAN CELL VOLUME 75.5 fl (80-96); MEAN PLT VOLUME 8.2 fl (7.5-11.1); MONO % 8.1 % (3.8-10.2); NEUT % 77.5 % (42.8-82.8); PLATELET COUNT 248 K/MM3 (134-434); RBC 4.38 M/mm3 (3.60-5.2); RDW 17.7 % (11.6-15.6); WHITE BLOOD COUNT 9.9 K/mm3 (4.0-10.0)
--- NOTE | 2018-08-07 08:19 | PN ---
Post Progress Note Type of Delivery: Repeat C/S Vital Signs: Vital Signs Temperature 98.0 F 08/06/18 22:00 Pulse Rate 78 08/06/18 22:00 Respiratory Rate 18 08/06/18 22:00 Blood Pressure 118/64 08/06/18 22:00 O2 Sat by Pulse Oximetry (%) 98 08/04/18 12:35 Breast Exam: Yes: Soft Uterus: Yes: Fundus Firm, Fundus below umbilicus Incision: Yes: Dressing dry and intact Abdomen/GI: Yes: Abdomen soft, Tolerating PO Lochia: Yes: Rubra Lochia, amount: Small Extremities: Yes: Calves non-tender Activity: Ambulating - Labs Labs: CBC WBC 9.9 K/mm3 (4.0-10.0) 08/07/18 06:00 RBC 4.38 M/mm3 (3.60-5.2) 08/07/18 06:00 Hgb 10.9 GM/dL (10.7-15.3) 08/07/18 06:00 Hct 33.0 % (32.4-45.2) 08/07/18 06:00 MCV 75.5 fl (80-96) L 08/07/18 06:00 MCH 25.0 pg (25.7-33.7) L 08/07/18 06:00 MCHC 33.1 g/dl (32.0-36.0) 08/07/18 06:00 RDW 17.7 % (11.6-15.6) H 08/07/18 06:00 Plt Count 248 K/MM3 (134-434) D 08/07/18 06:00 MPV 8.2 fl (7.5-11.1) 08/07/18 06:00 Absolute Neuts (auto) 7.7 K/mm3 (1.5-8.0) 08/07/18 06:00 Neutrophils % 77.5 % (42.8-82.8) 08/07/18 06:00 Lymphocytes % 11.0 % (8-40) D 08/07/18 06:00 Monocytes % 8.1 % (3.8-10.2) 08/07/18 06:00 Eosinophils % 3.1 % (0-4.5) 08/07/18 06:00 Basophils % 0.3 % (0-2.0) 08/07/18 06:00 Nucleated RBC % 0 % (0-0) 08/07/18 06:00 Problem List - Problems (1) S/P repeat low transverse Code(s): Z98.891 - HISTORY OF UTERINE SCAR FROM PREVIOUS SURGERY Assessment/Plan 22yo s/p RLTCS, POD#3 -Rh+/RI/girl -Doing well -Routine PP care, po pain control -Anticipate d/c to home tomorrow Warren Smith mD
[2018-08-08 09:38] VITALS: BP 118/57; PULSE 74; TEMP 98.2
--- NOTE | 2018-08-08 11:37 | DS ---
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 Vital Signs: Vital Signs Temperature 98.2 F 08/08/18 07:15 Pulse Rate 74 08/08/18 07:15 Respiratory Rate 20 08/08/18 07:15 Blood Pressure 118/57 L 08/08/18 07:15 O2 Sat by Pulse Oximetry (%) 98 08/04/18 12:35 Constitutional: Yes: Well Nourished Eyes: Yes: Conjunctiva Clear HENT: Yes: Atraumatic Neck: Yes: Supple Cardiovascular: Yes: Regular Rate and Rhythm Respiratory: Yes: Regular Gastrointestinal: Yes: Normal Bowel Sounds External Genitalia: Yes: Normal Vaginal Exam: Yes: Normal Uterus: Yes: Firm Breast(s): Yes: WNL Musculoskeletal: Yes: WNL Extremities: Yes: WNL Wound/Incision: Yes: Draining, Other (Steri strips removed, wound cleaned and steri strips and dressing applied.) Neurological: Yes: Alert, Oriented ...Motor Strength: WNL Psychiatric: Yes: Alert, Oriented Labs: CBC, BMP 08/07/18 06:00 Delivery - Delivery Type of Anesthesia: Spinal Episiotomy/Laceration: None EBL (cc): 400 Delivery, Single - Stages of Labor Date of Delivery: 08/04/18 Time of Delivery: 10:12 Time Placenta Delivered: 10:13 - 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 Present: Yes Name: Justice Alberto Infant Gender: Female Weight: 7 lb 12 oz Position: Left, OT Total Hours ROM (Hrs/Mins): 0/2 - 1 Minute Total Score: 6 5 Minutes Total Score: 9 - [place] Feeding Plan Initial Plan: Elected not to breastfeed exclusively throughout hospitalization Discharge Summary Reason For Visit: Current Active Problems S/P repeat low transverse (Acute) Procedures: Principal: Repeat Low Transverse Hospital Course: Routine post op care Condition: Good - Instructions Diet, Activity, Other Instructions: Regular diet No driving, no lifting x 4 weeks F/U in clinic in 1 week Disposition: HOME - Home Medications Comprehensive Discharge Medication List: Ambulatory Orders Vit/Iron Fum/Folic AC [ Tablet] 1 each PO DAILY 02/12/17 Ferrous Sulfate [Iron] 325 mg PO DAILY 07/18/18
--- NOTE | 2018-08-10 14:26 | PATH ---
Surgical Pathology Report Patient Name: JUANITA ARCOS [facility]. Rec. 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 TRIVASCULAR CORD. MEMBRANES WITH NO DIAGNOSTIC ABNORMALITIES. Electronically Signed Nydia Christian M.D. Gross Description The specimen is received fresh labeled placenta and is a 482 gram, 18 x18 x 2.5cm. placenta with attached membranes and umbilical cord. The attached membranes are glistening, translucent, and insert marginally. The umbilical cord measures 51 cm. in length and averages 1.5 cm. in diameter. The cord inserts centrally, 6 centimeter to the nearest margin. No true knots or strictures are identified. Cut surface of the umbilical cord reveals 3 vessels. Sectioning reveals red-brown, spongy parenchyma. No lesions are identified. Communications Professor sections are submitted in three cassettes as follows: 1- membrane rolls and umbilical cord; 2-3- full thickness sections of placenta KWS/08/07/2018 sulki/08/07/2018
== END 2018-08-08 13:05 | disposition home or self-care (01) | DRG 540 ==
LOC: JLDR 08:25 → J3W 15:50
PROVIDERS: ADMIT Obstetrics & Gynecology; ATTEND Obstetrics & Gynecology
PROC: 10D00Z1 Extraction of Products of Conception, Low, Open Approach (ICD-10-PCS; principal; 2018-08-04)
DX: O34.211 Maternal care for low transverse scar from previous cesarean delivery (principal); Z3A.39 39 weeks gestation of pregnancy; Z37.0 Single live birth
CPT/HCPCS: 36415; 85025; 85730; 86593; 88307-TC; 90715